=== PATIENT | female | born 1940 | race Caucasian/White ===

== ENCOUNTER 2017-03-28 13:15 | Observation (INO) | payer OTHER, MEDICARE ==
[~2017-03-28] VITALS: Ht 154.9 cm; Wt 90.3 kg
[~2017-03-28 13:15] MED LIST: ASPIRIN EC325 M2 PO; CIPRO500 M1 PO; CIPROFLOXACIN500 M2 PO; CRESTOR10 M1 PO; FLAGYL500 MG PO; METRONIDAZOLE500 M1 PO; VALSARTAN160 M1 PO
--- NOTE | 2017-03-28 14:24 | CT SCAN REPORT ---
EXAMINATION: CT HEAD WITHOUT CONTRAST CLINICAL INFORMATION: Facial numbness. TIA. COMPARISON: None. TECHNIQUE: Contiguous axial imaging was performed from the skull base to vertex without intravenous administration of contrast. DLP: 560.38 mGy-cm FINDINGS: There is no evidence of acute intracranial hemorrhage or territorial infarction. No abnormal mass effect or midline shift is seen. Tavares to white matter differentiation is well preserved. No extra-axial fluid collections are identified. There is mild commensurate prominence of the ventricles and sulci consistent with diffuse volume loss. There are areas of low attenuation in the periventricular and subcortical white matter consistent with chronic microvascular ischemic disease. In addition, there are more focal areas of low attenuation in the centra semiovale bilaterally and in the right greater than left basal ganglia, consistent with chronic/infarcts. There are no acute osseous findings. There is a small osteoma off the anterior frontal bone in the supraorbital region in the midline. The soft tissues are unremarkable. There are mild atheromatous calcifications of the cavernous internal carotid arteries and vertebral arteries bilaterally. The mastoid air cells and visualized portions of the paranasal sinuses are well aerated. IMPRESSION: 1. There are no acute bleeds or territorial infarcts. 2. There are areas of low attenuation in the periventricular white matter consistent with chronic microvascular ischemic disease. There are also more focal areas of low attenuation as described above consistent with chronic infarcts. A focus of more acute ischemic cannot be excluded on the basis of this study.
--- NOTE | 2017-03-28 15:59 | ED NEURO DEFICIT/STROKE ---
History of Present Illness General Chief Complaint: Neuro Symptoms/ Deficit Stated Complaint: R SIDE FACIAL NUMBNESS Source: patient Exam Limitations: no limitations Vital Signs & Intake/Output Vital Signs & Intake/Output Vital Signs Date Time Temp Pulse Resp B/P B/P Pulse O2 O2 Flow FiO2 Mean Ox Delivery Rate 03/29 0859 79 112/80 02/ 0726 98.1 79 18 112/80 94 Room Air 03/28 2322 97.8 77 18 124/78 97 03/28 1958 97.1 98 18 142/71 100 Room Air 03/28 1751 97.3 86 18 138/62 97 Room Air 03/28 1502 98 Room Air 03/28 1500 98.1 84 18 149/66 98 Room Air 03/28 1327 97.5 82 22 153/90 97 ED Intake and Output 03/29 0000 03/28 1200 Intake Total Output Total 1 Balance -1 Output, Urine 1 Patient 199 lb Weight Allergies Coded Allergies: Gadolinium-Containing Contrast Medi (ANAPHYLAXIS 10/26/16) venom-honey bee (ANAPHYLAXIS 10/26/16) Triage Note: PER PT STARTED AT 12 NOON WITH A FEELING WASED OVER ME THEN MY L FACE FELT NUMB AND TINGLING, PT HAS MISSED SOME BP MEDS D/T IN HOSPITAL. PT WITHOUT SLURRED SPEECH NO DROOP EQUAL HAND FOOT STRENGTH Triage Nurses Notes Reviewed? yes Onset: Abrupt Duration: hour(s): Timing: single episode today Severity: mild Altered Sensations: left facial Vision Problem? No Glaucoma? No HPI: 76yo female with hx of 2 prior TIAs, HTN presents to ED complaining of left facial paresthesias beginning at 12 PM today. Patient states that left face felt numb and tingling, symptoms have been gradually improving since onset. Patient reports that she missed 2 days of blood pressure medications recently because her was in the hospital. Patient's prior TIAs involved visual changes, she sees a neurologist in [place] (Dr. Van) for follow-up. Patient denies aphasia, ataxia, visual changes, dysarthria, one-sided weakness, facial droop, fall or recent head trauma. (Nuzhat NAJERA,Anahi Baptiste) Reconcile Medications Aspirin (Ecotrin*) 325 MG TABLET.DR 1 TAB PO DAILY HEART/BLOOD (Reported) Clopidogrel Bisulfate (Plavix) 75 MG TABLET 75 MG PO DAILY STROKE PREVENTION Rosuvastatin Calcium (Crestor) 10 MG TABLET 1 TAB PO DAILY CHOLESTEROL ( Reported) Valsartan 160 MG TABLET 1 TAB PO BID BP (Reported) (Thomas [place]NA[place],Amada) Past History Travel History Traveled to [place] past 21 day No Medical History Any Pertinent Medical History? 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 No (Nuzhat NAJERA,Anahi Baptiste) Review of Systems Review of Systems Constitutional: Reports: no symptoms. EENTM: Reports: no symptoms. Respiratory: Reports: no symptoms. Cardiovascular: Reports: no symptoms. GI: Reports: no symptoms. Genitourinary: Reports: no symptoms. Musculoskeletal: Reports: no symptoms. Skin: Reports: no symptoms. Neurological/Psychological: Reports: see HPI. Hematologic/Endocrine: Reports: no symptoms. Immunologic/Allergic: Reports: no symptoms. All Other Systems: Reviewed and Negative (Nuzhat NAJERA,Anahi Baptiste) Physical Exam Physical Exam General Appearance: well developed/nourished, no apparent distress, alert, awake Head: atraumatic, normal appearance Eyes: Bilateral: normal appearance, PERRL, EOMI. Ears, Nose, Throat: moist mucous membrane, hearing grossly normal, pharynx normal Neck: normal inspection, supple, full range of motion Respiratory: normal breath sounds, no respiratory distress, lungs clear Cardiovascular: regular rate/rhythm Peripheral Pulses: 2+ radial (R), 2+ radial (L) Gastrointestinal: normal bowel sounds, soft, non-tender, no organomegaly Back: normal inspection, normal range of motion Extremities: normal range of motion Psychiatric: awake, alert, oriented x 3 Cranial Nerves: normal hearing, normal speech, PERRL, CN II-XII WNL Coordination/Gait: normal finger to nose, normal gait Motor/Sensory: no motor/sensory deficits Skin: intact, normal color, warm/dry Core Measures CVA/TIA Diagnosis: Yes NIH Stroke Scale NIH Stroke Scale Response Value Level of Consciousness alert 0 LOC Questions answers both correctly 0 LOC Commands obeys both correctly 0 Best Gaze normal 0 Visual [place] no visual loss 0 Facial Paresis normal 0 Motor Arm - Left no drift 0 Motor Arm - Right no drift 0 Motor Leg - Left no drift 0 Motor Leg - Right no drift 0 Limb Ataxia no ataxia 0 Sensory normal 0 Best Language no aphasia 0 Dysarthria normal articulation 0 Extinction and Inattention no neglect 0 Total 0 Date Last Known Well: 03/28/17 Symptom Start Date: 03/28/17 Symptom Start Time: 1200 Reason tPA not ordered Medical Contraindication Swallow Evaluation Pass Sepsis Present: No Sepsis Focused Exam Completed? No (Nuzhat NAJERA,Anahi Baptiste) Progress Differential Diagnosis: Martin's Palsy, electrolyte imbalance, encephalitis, intracranial Hem., intracranial mass/tumor, seizure disorder, stroke, TIA, neuralgia Plan of Care: Orders Procedure Date/time Status Heart Healthy Diet 03/29 B Active TOTAL IRON BINDING CAPACITY 03/29 0635 Complete FERRITIN 03/29 0635 Complete SERUM IRON 03/29 0635 Complete TROPONIN LEVEL 03/29 06 Complete LIPID PANEL 03/29 06 Complete CBC WITHOUT DIFFERENTIAL 03/29 06 Complete BASIC ELECTROLYTES PLUS BUN&CR 03/29 0600 Complete EKG 03/29 0600 Active Lab Add-on Test 03/29 UNK Active EKG 03/28 2350 Active TROPONIN LEVEL 03/28 2300 Complete EKG 03/28 2300 Active Vital Signs 03/28 223 Complete Teach/Educate 03/28 2237 Active Pain Treatment and Response 03/28 2237 Active Nutritional Intake, Monitor 03/28 2237 Active Isolation 03/28 2237 Active Intake & Output 03/28 2237 Complete Patient Care Conference 03/28 2237 Active Activity/Ambulation 03/28 2237 Active Pathway - chart 03/28 2034 Active Patient Data 03/[address] in observation 03/28 193 Active Misc Message 03/28 193 Active ED Holding Orders 03/28 193 Active Vital Signs 03/28 1936 Active Code Status 03/28 1936 Active TROPONIN LEVEL 03/28 1600 Complete PARTIAL THROMBOPLASTIN TIME 03/28 1600 Complete PROTHROMBIN TIME 03/28 1600 Complete COMPREHENSIVE METABOLIC PANEL 03/28 1600 Complete CBC WITHOUT DIFFERENTIAL 03/28 1600 Complete EKG 03/28 1600 Active NIH Stroke Scale 03/28 1515 Active Intake & Output 03/28 1502 Active PT Evaluate & Treat 03/28 UNK Active House Staff 03/28 UNK Active VTE Mechanical Prophylaxis 03/28 UNK Active ECHOCARDIOGRAM 03/28 UNK Active Current Medications Sig/Jeff[place] Start time Last Medication Dose Stop Time Status Admin Atorvastatin Calcium 80 MG 1700 03/29 1700 AC 03/29 (Lipitor) 0049 Clopidogrel Bisulfate 75 MG DAILY 03/29 1215 AC (Plavix) Aspirin Buffered 325 MG DAILY 03/29 1000 AC 03/29 (Ecotrin) 0900 Losartan Potassium 100 MG DAILY 03/29 1000 AC 03/29 (Cozaar) 0859 Enoxaparin Sodium 40 MG DAILY 03/28 2033 AC 03/29 (Lovenox) 0900 Acetaminophen 650 MG Q6P PRN 03/28 2030 AC (Tylenol) Laboratory Tests 03/29/17 0635: Anion Gap 10, Estimated GFR > 60, BUN/Creatinine Ratio 34.0 H, Iron 30 L, TIBC 363, Ferritin 7.8 L, Troponin I < 0.01, Triglycerides 100, Cholesterol 108, LDL Cholesterol, Calc 47 L, HDL Cholesterol 41, Cholesterol/HDL Ratio 3, CBC w Diff NO MAN DIFF REQ, RBC 3.82 L, MCV 76.9 L, MCH 25.0 L, MCHC 32.5 L, RDW 17.3 H, MPV 7.3 L, Gran % 65.1, Lymphocytes % 22.8, Monocytes % 8.2, Eosinophils % 3.5, Basophils % 0.4, Absolute Granulocytes 3.4, Absolute Lymphocytes 1.2, Absolute Monocytes 0.4, Absolute Eosinophils 0.2, Absolute Basophils 0 03/28/17 2335: Troponin I < 0.01 03/28/17 1625: Anion Gap 13, Estimated GFR > 60, BUN/Creatinine Ratio 42.0 H, Glucose 102 H, Calcium 8.8, Total Bilirubin 0.4, AST 42 H, ALT 29, Alkaline Phosphatase 88, Troponin I < 0.01, Total Protein 7.0, Albumin 4.4, Globulin 2.6, Albumin/ Globulin Ratio 1.7, PT 11.4, INR 1.09, APTT 33, CBC w Diff NO MAN DIFF REQ, RBC 4.33, MCV 76.3 L, MCH 24.4 L, MCHC 32.0 L, RDW 17.1 H, MPV 6.7 L, Gran % 66.3, Lymphocytes % 24.3, Monocytes % 6.9, Eosinophils % 2.0, Basophils % 0.5, Absolute Granulocytes 4.4, Absolute Lymphocytes 1.6, Absolute Monocytes 0.5, Absolute Eosinophils 0.1, Absolute Basophils [address] Abbott regarding this patient. He states that if patient is comfortable going home to begin Plavix 75 mg once daily. He states it is also reasonable patient to stay for observation and carotid ultrasounds. The patient was seen and evaluated by Dr. Guzman. The decision was made for patient to stay as telemetry observation for TIA workup including carotid ultrasounds and MRI. Diagnostic Imaging: Viewed by Me: CT Scan. Discussed w/RAD: CT Scan. Radiology Impression: PATIENT: NISSA ALMAGUER PRESENT AGE: 76 PATIENT ACCOUNT NO: [id number] : 41 LOCATION: [facility] ORDERING PHYSICIAN: Amada Guzman MD SERVICE DATE: 03/28/17 EXAM TYPE: CAT - CT HEAD WO IV CONTRAST EXAMINATION: CT HEAD WITHOUT CONTRAST CLINICAL INFORMATION: Facial numbness. TIA. COMPARISON: None. TECHNIQUE: Contiguous axial imaging was performed from the skull base to vertex without intravenous administration of contrast. DLP: 560.38 mGy-cm FINDINGS: There is no evidence of acute intracranial hemorrhage or territorial infarction. No abnormal mass effect or midline shift is seen. Tavares to white matter differentiation is well preserved. No extra-axial fluid collections are identified. There is mild commensurate prominence of the ventricles and sulci consistent with diffuse volume loss. There are areas of low attenuation in the periventricular and subcortical white matter consistent with chronic microvascular ischemic disease. In addition, there are more focal areas of low attenuation in the centra semiovale bilaterally and in the right greater than left basal ganglia, consistent with chronic/infarcts. There are no acute osseous findings. There is a small osteoma off the anterior frontal bone in the supraorbital region in the midline. The soft tissues are unremarkable. There are mild atheromatous calcifications of the cavernous internal carotid arteries and vertebral arteries bilaterally. The mastoid air cells and visualized portions of the paranasal sinuses are well aerated. IMPRESSION: 1. There are no acute bleeds or territorial infarcts. 2. There are areas of low attenuation in the periventricular white matter consistent with chronic microvascular ischemic disease. There are also more focal areas of low attenuation as described above consistent with chronic infarcts. A focus of more acute ischemic cannot be excluded on the basis of this study. DICTATED BY: Lawson Gonzalez MD DATE/TIME DICTATED:03/28/171416 EXECUTIVE MANAGER:EMILIA DATE/TIME TRANSCRIBED:1416 CONFIDENTIAL, DO NOT COPY WITHOUT APPROPRIATE AUTHORIZATION. < Electronically signed in Other Vendor System> SIGNED BY: Lawson Gonzalez MD 1424 (Anahi Meyer) Diagnostic Imaging: Viewed by Me: CT Scan, Ultrasound. Discussed w/RAD: CT Scan, Ultrasound. Initial ED EKG: NSR Prior EKG: unchanged (Amada Guzman MD) Departure Departure Condition: Stable Referrals: Pamela Flores MD (PCP/Family) Departure Forms: Customer Survey General Discharge Information (Anahi Meyer) Departure Time of Disposition: 1831 Disposition: STILL A PATIENT Clinical Impression Primary Impression: TIA (transient ischemic attack) Prescriptions: Current Visit Scripts Clopidogrel Bisulfate (Plavix) 75 MG PO DAILY #21 TAB Observation Note Spoke With: Meena Xavier MD Physician Advisor Notified: PASTORA CANA[place],NINA Zarate (CASE MANAGEMENT) Place Patient In: Non-ED OBS Care Area Rationale for Observation: My rational for observation is as follows [TELE MONITOR, CAROTID DOPPLER, MRI BRAIN, NEUROLOGY CONSULTAITON DR ABBOTT]. PA/TYPESETTERS PRINTER Co-Sign Statement Statement: ED Attending supervision documentation- [X] I saw and evaluated the patient. I have also reviewed all the pertinent lab results and diagnostic results. I agree with the findings and the plan of care as documented in the PA's/TYPESETTERS PRINTER's documentation. [X] I have reviewed the ED Record and agree with the PA's/TYPESETTERS PRINTER's documentation. [] Additions or exceptions (if any) to the PAs/TYPESETTERS PRINTER's note and plan are summarized below: [] (Amada Guzman MD)
[2017-03-28 16:45] LABS: ABSOLUTE BASOPHIL COUNT 0 /CUMM (0.0-0.2); ABSOLUTE EOSINOPHIL COUNT 0.1 /CUMM (0.0-0.7); ABSOLUTE GRANULOCYTE CT 4.4 /CUMM (1.4-6.5); ABSOLUTE LYMPH COUNT 1.6 /CUMM (1.2-3.4); ABSOLUTE MONOCYTE COUNT 0.5 /CUMM (0.10-0.60); BASOPHIL % 0.5 % (0.0-2.0); GRANULOCYTE % 66.3 % (42.2-75.2); MEAN CORPUSCULAR HGB 24.4 PG (27.0-31.0); MEAN CORPUSCULAR VOLUME 76.3 FL (81.0-99.0); MEAN PLATELET VOLUME 6.7 FL (7.4-10.4); PLATELET COUNT 356 /CUMM (130-400); RBC DISTRIBUTION WIDTH 17.1 % (11.5-14.5); RED BLOOD CELL CT 4.33 /CUMM (4.20-5.40); WHITE BLOOD CELL COUNT 6.6 /CUMM (4.8-10.8)
[2017-03-28 17:05] LABS: PT 11.4 SEC (9.4-12.5); PTT 33 SEC (25-37)
--- NOTE | 2017-03-28 20:08 | History & Physical ---
Phuc Ochoa MD 03/28/17 2007: General Information and HPI MD Statement: I have seen and personally examined NISSA ALMAGUER and documented this H&P. The patient is a 76 year old F who presented with a patient stated chief complaint of [left facial paresthesia and numbness]. Source of Information: patient Exam Limitations: no limitations History of Present Illness: Patient is a 76-year-old female with a PMH significant for 2 TIAs, HTN, HLD who presents to the ED complaining of left facial tingling and numbness. Patient states that the sensation began suddenly with tingling quickly followed by numbness of the entire left face. . She said the left side of the tongue was also affected. States that her symptoms lasted for several hours but have since resolved. She inspected herself in the mirror and noticed no facial droop. She denies any dysarthria or aphasia. She denied any numbness or weakness of the rest of her body, she denied any visual changes or loss of consciousness. She currently states that she has a mild headache however she did not at the onset of her symptoms. Patient follows with Dr. Van for neurologic care. Allergies/Medications Allergies: Coded Allergies: Gadolinium-Containing Contrast Medi (ANAPHYLAXIS 10/26/16) venom-honey bee (ANAPHYLAXIS 10/26/16) Home Med list Aspirin (Ecotrin*) 325 MG TABLET.DR 1 TAB PO DAILY HEART/BLOOD (Reported) Clopidogrel Bisulfate (Plavix) 75 MG TABLET 75 MG PO DAILY STROKE PREVENTION . 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 spouse Primary Language: Croatian Smoking Status: Never Smoked ETOH Use: occasional use Illicit Drug Use: denies illicit drug use Review of Systems Review of Systems Constitutional: Denies: chills, fever, malaise, weakness. EENTM: Denies: blurred vision, double vision, visual changes. Cardiovascular: Denies: chest pain, orthopena, palpitations, syncope. Respiratory: Denies: cough, orthopnea, short of breath. GI: Reports: no symptoms. Genitourinary: Reports: no symptoms. Musculoskeletal: Reports: no symptoms. Skin: Reports: no symptoms. Neurological/Psychological: Reports: headache, numbness, paresthesia, tingling. Exam & Diagnostic Data Last 24 Hrs of Vital Signs/I&O Vital Signs Date Time Temp Pulse Resp B/P B/P Pulse O2 O2 Flow FiO2 Mean Ox Delivery Rate 03/28 2322 97.8 77 18 124/78 97 03/28 1958 97.1 98 18 142/71 100 Room Air 03/28 1751 97.3 86 18 138/62 97 Room Air 03/28 1502 98 Room Air 03/28 1500 98.1 84 18 149/66 98 Room Air 03/28 1327 97.5 82 22 153/90 97 Intake & Output 03/29 0800 03/29 0000 03/28 1600 Intake Total Output Total 1 Balance -1 Output, Urine 1 Patient 199 lb 200 lb Weight Physical Exam General Appearance Alert, Oriented X3, Cooperative, No Acute Distress Skin Temp/Moisture Exam: Warm/Dry HEENT Atraumatic, PERRLA, EOMI, Mucous Membr. moist/pink Neck Supple, No JVD, +2 Carotid Pulse wo Bruit Cardiovascular Regular Rate, Normal S1, Normal S2 Lungs Clear to Auscultation, Normal Air Movement Abdomen Normal Bowel Sounds, Soft, No Tenderness Neurological Normal Speech, Strength at 5/5 X4 Ext, Normal Tone, Sensation Intact, Cranial Nerves 3-12 NL Extremities No Clubbing, No Cyanosis, No Edema, Normal Pulses Vascular Normal Pulses, Pulses Symmetrical Last 24 Hrs of Labs/Uziel: Laboratory Tests 03/29/17 0635: Sodium Pending, Potassium Pending, Chloride Pending, Carbon Dioxide Pending, Anion Gap Pending, BUN Pending, Creatinine Pending, BUN/Creatinine Ratio Pending , Troponin I Pending, Triglycerides Pending, Cholesterol Pending, LDL Cholesterol, Calc Pending, HDL Cholesterol Pending, Cholesterol/HDL Ratio Pending, CBC w Diff Pending, WBC Pending, RBC Pending, Hgb Pending, Hct Pending, MCV Pending, MCH Pending, MCHC Pending, RDW Pending, Plt Count Pending, MPV Pending 03/28/17 2335: Troponin I < 0.01 03/28/17 1625: Anion Gap 13, Estimated GFR > 60, BUN/Creatinine Ratio 42.0 H, Glucose 102 H, Calcium 8.8, Total Bilirubin 0.4, AST 42 H, ALT 29, Alkaline Phosphatase 88, Troponin I < 0.01, Total Protein 7.0, Albumin 4.4, Globulin 2.6, Albumin/ Globulin Ratio 1.7, PT 11.4, INR 1.09, APTT 33, CBC w Diff NO MAN DIFF REQ, RBC 4.33, MCV 76.3 L, MCH 24.4 L, MCHC 32.0 L, RDW 17.1 H, MPV 6.7 L, Gran % 66.3, Lymphocytes % 24.3, Monocytes % 6.9, Eosinophils % 2.0, Basophils % 0.5, Absolute Granulocytes 4.4, Absolute Lymphocytes 1.6, Absolute Monocytes 0.5, Absolute Eosinophils 0.1, Absolute Basophils 0 Diagnostic Data EKG Results NSR, HR 83, QTC [address] head 1. There are no acute bleeds or territorial infarcts. 2. There are areas of low attenuation in the periventricular white matter consistent with chronic microvascular ischemic disease. There are also more focal areas of low attenuation as described above consistent with chronic infarcts. A focus of more acute ischemic cannot be excluded on the basis of this study. Assessment/Plan Assessment: Patient is a 76-year-old female with a PMH significant for 2 TIAs, HTN, HLD who presents to the ED complaining of left facial tingling and numbness. Symptoms have since resolved and CT scan showed no definitive signs of acute hemorrhage or infarct. Problem list #TIA #Microcytic anemia #History of HTN and hyperlipidemia Plan -Place in observation on telemetry for -Continuos telemetry monitoring -Carotid ultrasounds -MRI head -Neurology consult has been placed with on-call neurologist - Follow-up Iron studies and lipid panel - Continue home statin, valsartan and ASA - DVT prophylaxis with Lovenox subcutaneous, ALPS - CODE STATUS: Full code As Ranked By This Provider Problem List: 1. TIA (transient ischemic attack) Core Measures/Misc (11/10) Acute Coronary Syndrome ACS Diagnosis: No Congestive Heart Failure Congestive Heart Failure Diagnosis No Cerebrovascular Accident CVA/TIA Diagnosis: Yes NIH Stroke Scale: Total 0 Date Last Known Well: 03/28/17 Time Last Known Well: 1200 Symptom Start Date: 03/28/17 Symptom Start Time: 1200 Reason tPA not ordered Medical Contraindication (outside of window) Swallow Evaluation Pass Current/Past Hx AFib/AFlutter No VTE (View Protocol) VTE Risk Factors Age>40 No Mechanical VTE Prophylaxis d/t N/A MechProphylax Ordered No VTE Pharm Prophylaxis d/t NA PharmProphylax ordered Sepsis (View protocol) Sepsis Present: No Evelia Meraz MD 03/28/17 2223: Resident Review Statement Resident Statement: examined this patient, discussed with international freight forwarder, agreed with international freight forwarder, discussed with family, reviewed EMR data (avail), reviewed images, amended to note Other Findings: 76-year-old female with history of 2 TIAs in the past 5 yrs, hypertension and hyperlipidemia who presents with left facial tingling and numbness that started around 12 PM today, she called her PCP at 12.20pm who told her to present in the ED. Symptoms lasted a couple of hours and has gradually improved. She denies aphasia, ataxia, visual changes, dysarthria, facial droop or weakness of one side of her body. She reports she had missed 2 days of her antihypertensive medication due to being away from home while her was admitted in hospital for shunt placement for NPH. She resumed her blood pressure meds last night at 11 PM and took them again this morning. Her medications include Valsartan 160mg BID, Asprin 325mg daily, Rosuvostatin 10mg dialy, calcium and iron. Symptoms had totally resolved at the time of interview. She denies any difficulty swallowing, residual numbness/tingling or headache. 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 She follows with a neurologist out of [place]. Vitalstemperature 97.1, pulse rate 98, respiratory 18, blood pressure 142/71, saturating 100% on room air LabsWBC 6.6, hemoglobin 10.6, hematocrit 33, platelet 356, sodium 143, potassium 4.1, BUN 21, creatinine 0.5, glucose 102, INR 1.09 EKGnormal sinus rhythm, rate 83, LVH, QTC [address] acute bleeds or territorial infarcts, chronic microvascular ischemic disease, acute ischemia cannot be excluded from this study. Exam-No focal neurolgical deficits Assessment 1. TIA 2. Microcytic anemia 3. Hypertension, hyperlipidemia Plan Observe in telemetry Obtain echocardiogram Obtain carotid ultrasounds Asprin and atorvastatin Trend troponins and EKG Fasting lipid profile, iron studies Neurologic consult in a.m. Neurochecks Consider MRI in a.m. Resume patient's home medications FC DVT ppx wit lovenox Meena Xavier 03/29/17 0454: Attending MD Review Statement Attending Statement Attending MD Statement: examined this patient, discuss w/resident/PA/SALES AND LEASING CONSULTANT, agreed w/resident/PA/SALES AND LEASING CONSULTANT, reviewed EMR data (avail), reviewed images, amended to note Attending Assessment/Plan: CC: Left-sided facial facial tingling and numbness in tingling and numbness PMH: history of TIA 2 times approximately 10 year pack, HTN, spinal stenosis Patient came to ER for left sided facial numbness and tingling, resolved by the time she came to ER. She denies any neurological weakness, facial drooping, drooling, surgery speech, word finding difficulty, abnormal gait. Patient does not recall and recent investigations about carotid Doppler, she had 2-D echo done recently. 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 Otherwise complete ROS unremarkable. Vitals: Afebrile, pulse 82, RR 22, blood pressure 153/ 90, saturating 97% on room air On exam: A O 3, cooperative, no acute distress, neck supple, JVD normal, no lymphadenopathy, mucosa moist, no focal neurological deficit, no dependent edema , no obvious skin rashes or inflammation CVS: S1-S2, RRR. RS: Clear to auscultate bilaterally. Abdomen: Soft, NT, ND, bowel sounds present. Labs: WBC 6.6, hemoglobin 10.6, hematocrit 33.0, platelets 356, MCV 76.3, sodium 143, potassium 4.1, chloride 103, bicarbonate 26, BUN is 11, creatinine 0.5, glucose 102, calcium 8.8, troponin less than 0.01, LFT unremarkable, INR 1.[address]: 1. There are no acute bleeds or territorial infarcts. 2. There are areas of low attenuation in the periventricular white matter consistent with chronic microvascular ischemic disease. There are also more focal areas of low attenuation as described above consistent with chronic infarcts. A focus of more acute ischemic cannot be excluded on the basis of this study. Assessment and plan 76-year-old female with past medical history of 2 TIAs approximately 10 years back, hypertension, missed her blood pressure medications for last 2 days, came to ER for transient left facial tingling numbness which is now resolved. She did not notice any other weakness in her muscles. Incomplete neurological examination and swallow evaluation normal. Probably patient may have had TIA, given her previous history of TIA and hypertension she would benefit from observation in hospital to evaluate. She is also having microcytic anemia of unclear reason. + TIA + History of HTN - Place in observation on telemetry - Continuous telemetry monitoring - Serial troponin and EKG - MRI brain - 2-D echocardiogram in a.m. - DVT prophylaxis - Obtain iron studies - Obtain lipid profile - Continue aspirin and statin - Neurologic consult - Serial neuro checks - Carotid Dopplers - Adequate pain control
[2017-03-28 23:22] VITALS: BP 124/78
--- NOTE | 2017-03-29 06:34 | PN- Housestaff ---
Subjective Follow-up For: TIA Complaints: no complaints Tele-Events Since Last Visit: SR, 1st degree HB; 66-82 Subjective: Patient geovanny nd examined. Eager to go home. Review of Systems Constitutional: Reports: no symptoms. Objective Last 24 Hrs of Vital Signs/I&O Vital Signs Date Time Temp Pulse Resp B/P B/P Pulse O2 O2 Flow FiO2 Mean Ox Delivery Rate 03/29 0726 98.1 79 18 112/80 94 Room Air 03/28 2322 97.8 77 18 124/78 97 03/28 1958 97.1 98 18 142/71 100 Room Air 03/28 1751 97.3 86 18 138/62 97 Room Air 03/28 1502 98 Room Air 03/28 1500 98.1 84 18 149/66 98 Room Air 03/28 1327 97.5 82 22 153/90 97 Intake & Output 03/29 0800 03/29 0000 03/28 1600 Intake Total Output Total 1 Balance -1 Output, Urine 1 Patient 199 lb 200 lb Weight Physical Exam General Appearance: Alert, Oriented X3, Cooperative, No Acute Distress HEENT: PERRLA, Mucous Membr. moist/pink Cardiovascular: Regular Rate, Normal S1, Normal S2 Lungs: Clear to Auscultation, Normal Air Movement Abdomen: Normal Bowel Sounds, Soft, No Tenderness Extremities: No Edema, Normal Pulses Current Medications: Current Medications Sig/Jefferson Start time Last Medication Dose Route Stop Time Status Admin Acetaminophen 650 MG Q6P PRN 03/28 2030 AC PO Aspirin Buffered 325 MG DAILY 03/29 1000 AC PO Atorvastatin Calcium 80 MG 1700 03/29 1700 DC PO Atorvastatin Calcium 80 MG 1700 03/29 1700 AC 03/29 PO 0049 Enoxaparin Sodium 40 MG DAILY 03/28 2034 AC SC Losartan Potassium 50 MG DAILY 03/29 1000 DC PO Losartan Potassium 100 MG DAILY 03/29 1000 AC PO Last 24 Hrs of Lab/Uziel Results Last 24 Hrs of Labs/Mics: Laboratory Tests 03/29/17 0635: Sodium Pending, Potassium Pending, Chloride Pending, Carbon Dioxide Pending, Anion Gap Pending, BUN Pending, Creatinine Pending, BUN/Creatinine Ratio Pending , Iron Pending, TIBC Pending, Ferritin Pending, Troponin I Pending, Triglycerides Pending, Cholesterol Pending, LDL Cholesterol, Calc Pending, HDL Cholesterol Pending, Cholesterol/HDL Ratio Pending, CBC w Diff Pending, WBC Pending, RBC Pending, Hgb Pending, Hct Pending, MCV Pending, MCH Pending, MCHC Pending, RDW Pending, Plt Count Pending, MPV Pending 03/28/17 2335: Troponin I < 0.01 03/28/17 1625: Anion Gap 13, Estimated GFR > 60, BUN/Creatinine Ratio 42.0 H, Glucose 102 H, Calcium 8.8, Total Bilirubin 0.4, AST 42 H, ALT 29, Alkaline Phosphatase 88, Troponin I < 0.01, Total Protein 7.0, Albumin 4.4, Globulin 2.6, Albumin/ Globulin Ratio 1.7, PT 11.4, INR 1.09, APTT 33, CBC w Diff NO MAN DIFF REQ, RBC 4.33, MCV 76.3 L, MCH 24.4 L, MCHC 32.0 L, RDW 17.1 H, MPV 6.7 L, Gran % 66.3, Lymphocytes % 24.3, Monocytes % 6.9, Eosinophils % 2.0, Basophils % 0.5, Absolute Granulocytes 4.4, Absolute Lymphocytes 1.6, Absolute Monocytes 0.5, Absolute Eosinophils 0.1, Absolute Basophils 0 Lines/Diet/Fluids Lines: peripheral lines Assessment/Plan Assessment: 76-year-old female with history of 2 TIAs in the past 5 yrs, hypertension and hyperlipidemia who presents with left facial tingling and numbness that started around 12 PM today, she called her PCP at 12.20pm who told her to present in the ED. Symptoms lasted a couple of hours and has gradually improved. She denies aphasia, ataxia, visual changes, dysarthria, facial droop or weakness of one side of her body. Assessment 1. TIA 2. Microcytic anemia 3. Hypertension, hyperlipidemia Plan Observe in telemetry Obtain echocardiogram Obtain carotid ultrasounds Asprin and atorvastatin Troponins x 3 and EKG-neg f/u fasting lipid profile, iron studies F/u Neurologic note Neurochecks Q4hrs F/U MRI Resume patient's home medications FC DVT ppx wit lovenox Possible DC today if cleared by neuro Problem List: 1. TIA (transient ischemic attack) Pain Ratin Pain Location: n/a Pain Goal: Remain pain free Pain Plan: n/a Tomorrow's Labs & Rationales: n/a DVT/Prophylaxis: pharmacological Discharge Plan Discharge Disposition: home Anticipated Discharge (Day): today
[2017-03-29 07:26] VITALS: BP 112/80
[2017-03-29 08:44] LABS: ABSOLUTE BASOPHIL COUNT 0 /CUMM (0.0-0.2); ABSOLUTE EOSINOPHIL COUNT 0.2 /CUMM (0.0-0.7); ABSOLUTE GRANULOCYTE CT 3.4 /CUMM (1.4-6.5); ABSOLUTE LYMPH COUNT 1.2 /CUMM (1.2-3.4); ABSOLUTE MONOCYTE COUNT 0.4 /CUMM (0.10-0.60); BASOPHIL % 0.4 % (0.0-2.0); EOSINOPHIL % 3.5 % (0-5); GRANULOCYTE % 65.1 % (42.2-75.2); HEMATOCRIT 29.3 % (37-47); MEAN CORPUSCULAR HGB CONC 32.5 G/DL (33.0-37.0); MEAN CORPUSCULAR VOLUME 76.9 FL (81.0-99.0); MEAN PLATELET VOLUME 7.3 FL (7.4-10.4); PLATELET COUNT 296 /CUMM (130-400); RBC DISTRIBUTION WIDTH 17.3 % (11.5-14.5); RED BLOOD CELL CT 3.82 /CUMM (4.20-5.40); WHITE BLOOD CELL COUNT 5.2 /CUMM (4.8-10.8)
[2017-03-29 08:59] VITALS: BP 112/80
--- NOTE | 2017-03-29 09:37 | ULTRASOUND REPORT ---
EXAMINATION: US DUPLEX CAROTID AND VERTEBRAL CLINICAL INFORMATION: 76-year-old male with left-sided TIA symptoms. COMPARISON: CTA chest 10/26/2016 TECHNIQUE: Real-time ultrasound and Doppler techniques (integrating B-mode 2D vascular images, Doppler spectral analysis and color flow Doppler imaging) were utilized to interrogate the extracranial carotid and vertebral arteries bilaterally. The degree of stenosis determined by criteria similar to NASCET. FINDINGS: 1. On the right: Plaque is present at the carotid bifurcation but velocity measurements are normal and do not suggest a stenosis of greater than 50% diameter reduction in the right ICA. The vertebral artery is patent demonstrating antegrade flow. The common carotid artery velocity is 39 cm/s. The internal carotid artery velocities are 23 cm/s systolic and on cm/s diastolic. The external carotid artery velocity is 47 cm/s. 2. On the left: Plaque is present at the carotid bifurcation but velocity measurements are normal and do not suggest a stenosis of greater than 50% diameter reduction in the left ICA. The vertebral artery is patent but demonstrates retrograde flow. The common carotid artery velocity is 157 cm/s. The proximal internal carotid artery velocities are 95 cm/s systolic and 19 cm/s diastolic. Elevated peak systolic velocity within the distal internal carotid artery of 165 cm/s. This may be related to vessel tortuosity or moderate stenosis. The external carotid artery velocity is 109 cm/s. IMPRESSION: 1. Plaque is present in the proximal internal carotid arteries but velocity measurements are normal and there is no evidence to suggest a hemodynamically significant stenosis of greater than 50% diameter reduction. Elevated peak systolic velocity in the distal left internal carotid artery may be related to vessel tortuosity or a moderate stenosis. Further evaluation can be obtained with CT of the neck, if clinically indicated. 2. The vertebral arteries are patent. The right vertebral artery demonstrates antegrade flow. However, there is retrograde flow in the left vertebral artery. 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
--- NOTE | 2017-03-29 09:42 | Cons- Neurology ---
General Information and HPI Consulting Request Date of Consult: 03/29/17 Requested By: Meena Xavier MD History of Present Illness: 76-year-old white female with history of prior TIA manifest as diplopia, transient global amnesia, hypertension and hyperlipidemia presented yesterday with transient left facial paresthesia. There were no associated appendicular symptoms, visual disturbance or dysarthria. She currently feels back to baseline. She has been maintained over time on full dose aspirin and a statin. At her baseline, she is fully independent. Allergies/Medications Allergies: Coded Allergies: Gadolinium-Containing Contrast Medi (ANAPHYLAXIS 10/26/16) venom-honey bee (ANAPHYLAXIS 10/26/16) Home Med List: Aspirin (Ecotrin*) 325 MG TABLET.DR 1 TAB PO DAILY HEART/BLOOD (Reported) Rosuvastatin Calcium (Crestor) 10 MG TABLET 1 TAB PO DAILY CHOLESTEROL ( Reported) Valsartan 160 MG TABLET 1 TAB PO BID BP (Reported) Review of Systems Review of Systems: Left facial paresthesia. 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 spouse Primary Language: Irish Smoking Status: Never Smoked ETOH Use: occasional use Illicit Drug Use: denies illicit drug use Exam & Diagnostic Data Vital Signs and I&O Vital Signs Date Time Temp Pulse Resp B/P B/P Pulse O2 O2 Flow FiO2 Mean Ox Delivery Rate 03/29 0859 79 112/80 02 0726 98.1 79 18 112/80 94 Room Air 03/28 2322 97.8 77 18 124/78 97 03/28 1958 97.1 98 18 142/71 100 Room Air 03/28 1751 97.3 86 18 138/62 97 Room Air 03/28 1502 98 Room Air 03/28 1500 98.1 84 18 149/66 98 Room Air 03/28 1327 97.5 82 22 153/90 97 Intake & Output 03/29 1600 03/29 0800 02 0000 Intake Total 200 Output Total Balance 200 Intake, Oral 200 Patient 199 lb Weight [place], elderly white female in no acute distress. The head was normocephalic and atraumatic. Higher cortical function was intact. Speech was fluent. Pupils were equal. Extraocular movements were full. There was no nystagmus. There was no field cut. Facial strength and sensation was intact. Hearing was grossly normal. Tongue was midline. The motor examination showed no drift of the upper extremities. There was no focal or lateralizing weakness. Deep tendon reflexes were symmetric. Plantar responses were flexor. Fine finger movements and rapid alternating movements performed normally. There was no ataxia on [id number] testing. Her gait was narrow based and steady. Assessment/Plan Assessment: In all likelihood, Ms. Cunningham has suffered a recurrent TIA. She is back to baseline. Her examination is nonfocal. CT scan showed no acute abnormalities; there were signs of chronic infarcts in the basal ganglia and centrum semiovale Recommendations: We would suggest brief addition of Plavix to her aspirin. We would continue this for several weeks only as current evidence shows no benefit to long-term dual antiplatelet therapy in this setting. She plans to follow-up with her private neurologist, Dr. Atif Van, on Friday. A carotid ultrasound should be performed. This can be done as an outpatient if she is to be discharged imminently. I do not believe that MRI will add to her management. Please feel free to call with any further questions. Consult Acknowledgment - Thank you for your consult request.
--- NOTE | 2017-03-29 12:10 | Patient Discharge Instructions ---
Discharge Instructions General Discharge Information You were seen/treated for: Transient ischemic attack (TIA) Special Instructions: Please follow-up with your neurologist within 1 week of discharge. Plavix is one additional medication on her medication list now. Please take it as prescribed. His follow-up with a vascular surgeon within 1 week of discharge, and discuss the results of your carotid Doppler and previous CT angiogram with him. Please return to emergency if symptoms worsen. Diet Continue normal diet: Yes Recommended Diet: Diabetic Activity Full Activity/No Limits: Yes Acute Coronary Syndrome Inclusion Criteria At DC or during hospital stay patient has or had the following: ACS DIAGNOSIS No Discharge Core Measures Meds if any: Prescribed or Continued at Discharge Meds if any: NOT Prescribed or Continued at Discharge Congestive Heart Failure Inclusion Criteria At DC or during hospital stay patient has or had the following: CHF DIAGNOSIS No Discharge Core Measures Meds if any: Prescribed or Continued at Discharge Meds if any: NOT Prescribed or Continued at Discharge Cerebrovascular accident Inclusion Criteria At DC or during hospital stay patient has or had the following: CVA/TIA Diagnosis Yes Discharge Core Measures Meds if any: Prescribed or Continued at Discharge Antithrombotic Yes Statin (required if LDL =>70) Yes Anticoagulant No Meds if any: NOT Prescribed or Continued at Discharge No Anticoagulant d/t Medical Contraindication Venous thromboembolism Inclusion Criteria VTE Diagnosis No VTE Type NONE VTE Confirmed by (Test) NONE Discharge Core Measures - Per Current guidelines, there needs to be overlap - treatment for the first 5 days of Warfarin therapy. - If discharged on Warfarin prior to 5 days of - overlap therapy, the patient will need to be - assessed for post discharge needs including - *Post discharge parental anticoagulation - *Warfarin and/or parental anticoagulation education - *Follow up date to check INR post discharge At least 5 days overlap therapy as Inpatient No Meds if any: Prescribed or Continued at Discharge Note: Overlap Therapy is Warfarin and Anticoagulant Meds if any: NOT Prescribed or Continued at Discharge
[2017-03-29] MEDS ORDERED: PLAVIX75 M1 PO ×2 (12:13→13:44)
--- NOTE | 2017-03-29 15:33 | PN- Att Addend ---
Attending Addendum Attending Brief Note Patient seen and examined. Extremely pleasant and not in any acute distress. No issues overnight. Denies any further tingling sensation in the face. Denies any focal weakness. She has been ambulating freely around the unit. Tolerating meals with no complaints. No events on telemetry monitoring. Vital Signs Date Time Temp Pulse Resp B/P B/P Pulse O2 O2 Flow FiO2 Mean Ox Delivery Rate 03/29 0859 79 112/80 03/29 0726 98.1 79 18 112/80 94 Room Air 03/28 2322 97.8 77 18 124/78 97 03/28 1958 97.1 98 18 142/71 100 Room Air 03/28 1751 97.3 86 18 138/62 97 Room Air General appearance: Well-developed, not in acute distress. HEENT: Anicteric, no pallor. Neck: Supple with no jugular venous distention. No carotid bruit. Lungs: Good entry bilaterally, clear to auscultation. Heart: S1-S2 regular with no audible murmur. Abdomen: Soft, nontender with normal bowel sounds. Extremities: No pedal edema. Skin: Intact with no rashes. Laboratory Tests 03/29/17 0635: Anion Gap 10, Estimated GFR > 60, BUN/Creatinine Ratio 34.0 H, Iron 30 L, TIBC 363, Ferritin 7.8 L, Troponin I < 0.01, Triglycerides 100, Cholesterol 108, LDL Cholesterol, Calc 47 L, HDL Cholesterol 41, Cholesterol/HDL Ratio 3, CBC w Diff NO MAN DIFF REQ, RBC 3.82 L, MCV 76.9 L, MCH 25.0 L, MCHC 32.5 L, RDW 17.3 H, MPV 7.3 L, Gran % 65.1, Lymphocytes % 22.8, Monocytes % 8.2, Eosinophils % 3.5, Basophils % 0.4, Absolute Granulocytes 3.4, Absolute Lymphocytes 1.2, Absolute Monocytes 0.4, Absolute Eosinophils 0.2, Absolute Basophils 0 03/28/17 2335: Troponin I < 0.01 03/28/17 1625: Anion Gap 13, Estimated GFR > 60, BUN/Creatinine Ratio 42.0 H, Glucose 102 H, Calcium 8.8, Total Bilirubin 0.4, AST 42 H, ALT 29, Alkaline Phosphatase 88, Troponin I < 0.01, Total Protein 7.0, Albumin 4.4, Globulin 2.6, Albumin/ Globulin Ratio 1.7, PT 11.4, INR 1.09, APTT 33, CBC w Diff NO MAN DIFF REQ, RBC 4.33, MCV 76.3 L, MCH 24.4 L, MCHC 32.0 L, RDW 17.1 H, MPV 6.7 L, Gran % 66.3, Lymphocytes % 24.3, Monocytes % 6.9, Eosinophils % 2.0, Basophils % 0.5, Absolute Granulocytes 4.4, Absolute Lymphocytes 1.6, Absolute Monocytes 0.5, Absolute Eosinophils 0.1, Absolute Basophils 0 Assessment: Symptoms appear consistent with a transient ischemic attack particularly in view of her previous history. No acute infarct noted on CT scan. Case discussed with neurology service. There is no recommendation for further neurologic imaging at present. Recommendations: She will be discharged on dual antiplatelet therapy for a several weeks after which she will continue on aspirin therapy only. Patient wishes to follow-up with her private neurologist as an outpatient. Carotid Doppler shows no evidence of significant internal carotid artery disease. 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 Patient reports that she is aware of this and has a vascular surgeon she follows up with routinely. She is noted to have mildly elevated AST. This is chronic dating back to 2017. This can be followed up by her primary care provider. She is medically stable to be discharged home today. She can follow-up with her primary care provider for a routine echocardiogram as well.
--- NOTE | 2017-03-29 15:35 | Discharge Summary ---
Visit Information Visit Dates Admission Date: 03/28/17 Discharge Date: 03/29/17 Hospital Course Course Attending Physician: Meena Xavier MD Primary Care Physician: Pamela Flores MD Hospital Course: 76 years old female with past medical history significant for 2 TIAs, HTN, HLD, DM, presented to the emergency department with complaint of left-sided facial tingling and numbness. Which was sudden, not associated with any facial droop or any numbness/weakness in any part of her artery. She also did not have any difficulty with speech, vision or consciousness level. Her symptoms were concerning for transient ischemic attack and she was observed in telemetry floor for frequent neuro checks, and further investigation. Her CAT scan of the head without contrast did not show any acute bleeds or territorial infarcts, but did so changes suggestive of chronic microvascular ischemic disease, and chronic infarcts. Her symptoms had completely resolved by the next day. She was seen by neurologist and suggested she take Plavix 75 mg PO daily for next few weeks while she follows up with her neurologist and possibly be only on aspirin daily for prevention of TIA/stroke. Rest of her medication were continued. 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 She mentioned that she was already aware of the condition and that she has been following up with a vascular surgeon. Her vitals and clinical examination were within normal limits at the time of discharge. Allergies: Coded Allergies: Gadolinium-Containing Contrast Medi (ANAPHYLAXIS 10/26/16) venom-honey bee (ANAPHYLAXIS 10/26/16) Significant Procedures: Carotid Doppler study done on 03/29/2017: FINDINGS: 1. On the right: Plaque is present at the carotid bifurcation but velocity measurements are normal and do not suggest a stenosis of greater than 50% diameter reduction in the right ICA. The vertebral artery is patent demonstrating antegrade flow. The common carotid artery velocity is 39 cm/s. The internal carotid artery velocities are 23 cm/s systolic and on cm/s diastolic. The external carotid artery velocity is 47 cm/s. 2. On the left: Plaque is present at the carotid bifurcation but velocity measurements are normal and do not suggest a stenosis of greater than 50% diameter reduction in the left ICA. The vertebral artery is patent but demonstrates retrograde flow. The common carotid artery velocity is 157 cm/s. The proximal internal carotid artery velocities are 95 cm/s systolic and 19 cm/s diastolic. Elevated peak systolic velocity within the distal internal carotid artery of 165 cm/s. This may be related to vessel tortuosity or moderate stenosis. The external carotid artery velocity is 109 cm/s. IMPRESSION: 1. Plaque is present in the proximal internal carotid arteries but velocity measurements are normal and there is no evidence to suggest a hemodynamically significant stenosis of greater than 50% diameter reduction. Elevated peak systolic velocity in the distal left internal carotid artery may be related to vessel tortuosity or a moderate stenosis. Further evaluation can be obtained with CT of the neck, if clinically indicated. 2. The vertebral arteries are patent. The right vertebral artery demonstrates antegrade flow. However, there is retrograde flow in the left vertebral artery. 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 DICTATED BY: Saeid Romeo DO DATE/TIME DICTATED:03/29/17927 DISCOVERY MANAGER:EMILIA DATE/TIME TRANSCRIBED:03/29/17927 CAT scan of the head done on 03/28/2017: FINDINGS: There is no evidence of acute intracranial hemorrhage or territorial infarction. No abnormal mass effect or midline shift is seen. [place] to white matter differentiation is well preserved. No extra-axial fluid collections are identified. There is mild commensurate prominence of the ventricles and sulci consistent with diffuse volume loss. There are areas of low attenuation in the periventricular and subcortical white matter consistent with chronic microvascular ischemic disease. In addition, there are more focal areas of low attenuation in the centra semiovale bilaterally and in the right greater than left basal ganglia, consistent with chronic/infarcts. There are no acute osseous findings. There is a small osteoma off the anterior frontal bone in the supraorbital region in the midline. The soft tissues are unremarkable. There are mild atheromatous calcifications of the cavernous internal carotid arteries and vertebral arteries bilaterally. The mastoid air cells and visualized portions of the paranasal sinuses are well aerated. IMPRESSION: 1. There are no acute bleeds or territorial infarcts. 2. There are areas of low attenuation in the periventricular white matter consistent with chronic microvascular ischemic disease. There are also more focal areas of low attenuation as described above consistent with chronic infarcts. A focus of more acute ischemic cannot be excluded on the basis of this study. DICTATED BY: Lawson Gonzalez MD DATE/TIME DICTATED:03/28/171416 DISCOVERY MANAGER:EMILIA DATE/TIME TRANSCRIBED:03/28/171416 Disposition Summary Disposition Principal Diagnosis: Transient ischemic attack (TIA) Additional Diagnosis: 2 TIAs, HTN, HLD, DM Discharge Disposition: home or self care Discharge Instructions General Discharge Information Code Status: Full Code Patient's Diet: Diabetic diet Patient's Activity: No restriction, as tolerated Follow-Up Instructions/Appts: Please follow-up with your neurologist within 1 week of discharge. Plavix is one additional medication on her medication list now. Please take it as prescribed. His follow-up with a vascular surgeon within 1 week of discharge, and discuss the results of your carotid Doppler and previous CT angiogram with him. Please return to emergency if symptoms worsen. Medications at Discharge Discharge Medications: Continue taking these medications: Valsartan (Valsartan) 160 MG TABLET 1 Tablet ORAL TWICE DAILY Qty = 180 Comments: NOT GIVEN AT HOSPITAL Rosuvastatin Calcium (Crestor) 10 MG TABLET 1 Tablet ORAL DAILY Qty = 90 Comments: NOT GIVEN AT HOSPITAL Aspirin (Ecotrin*) 325 MG TABLET.DR 1 Tablet ORAL DAILY Comments: Last Taken:03/29/17 Time:0900 Start taking the following new medications: Clopidogrel Bisulfate (Plavix) 75 MG TABLET 75 Milligram ORAL DAILY Qty = 21 No Refills Instructions: . Comments: Last Taken:03/29/17 Time: 2 PM Copies To: David [place],Javad Doe; Cachorro Van MD; Sandra [place],Pamela Zarate; Halle [place] ,[facility]
== END 2017-03-29 14:20 ==
LOC: ERH 13:15 → 1NO 19:36 → ERHI 19:36 → ENRESERV 21:07 → ENTRNSPT 22:18 → CMPTRNSPT 22:40 → 1NO 22:43 → ENPENDDIS 03-29 13:44 → 1NO 03-29 14:20
PROVIDERS: Physician Assistant; Student in an Organized Health Care Education/Training Program
DX: G45.9 Transient cerebral ischemic attack, unspecified (principal); Z86.73 Personal history of transient ischemic attack (TIA), and cerebral infarction without residual deficits; Z79.01 Long term (current) use of anticoagulants; I10 Essential (primary) hypertension; E78.5 Hyperlipidemia, unspecified; Z79.82 Long term (current) use of aspirin; D50.9 Iron deficiency anemia, unspecified; M19.90 Unspecified osteoarthritis, unspecified site; Z85.828 Personal history of other malignant neoplasm of skin
CPT/HCPCS: 6020; 36415; 82436; 93005; 93010; 96372; G0378; J1650; J3490